=== PATIENT | female | born 1985 | race Caucasian/White ===

== ENCOUNTER 2016-08-31 21:50 | Outpatient (CLI) | payer OTHER ==
[2016-08-31] MEDS ORDERED: NORMAL SALINE 10 ML SYRINGE FLUSH IVP PRN (23:34)
[2016-08-31 23:39] VITALS: RESP 16; TEMP 98.3
--- NOTE | 2016-09-01 14:25 | PDOC(PROG) ---
Intake - - Reason for Visit/Chief Complaint: Decreased Movement Additional Reason(s) for Visit: "second opinion" Admitted From: Home - Estimated Due Date: 09/02/16 Gestational Age in Weeks and Days: 39 Weeks and 6 Days : 4 Para: 2 Term Births: 1 Births: 1 Number of Abortions (Spont./Elective): 1 Living Children: 2 - Labs Blood Type and Rh: O+ Group B Strep: Negative HIV: Negative Maternal - Vital Signs Last Taken Vital Signs: Vital Signs - Last Taken Temperature 98.3 F 08/31/16 22:41 Pulse Rate 108 H 08/31/16 22:41 Respiratory Rate 16 08/31/16 22:41 Blood Pressure 113/68 08/31/16 22:41 Pulse Ox 99 08/31/16 22:41 - Uterine Activity Uterine Contraction Monitor Mode: External Contraction Frequency(minutes): X2 Contraction Duration (seconds): 60-70 Uterine Contraction Pattern: Irregular Uterine Tone Measurement Phase: Resting Uterine Contraction Intensity: Mild - Vaginal Discharge Vaginal Bleeding Amount: None Vaginal Discharge Amount: None Monitoring - Uterine Activity Uterine Contraction Monitor Mode: External Contraction Frequency(minutes): X2 Contraction Duration (seconds): 60-70 Uterine Contraction Pattern: Irregular Uterine Tone Measurement Phase: Resting Uterine Contraction Intensity: Mild Results - Bedside Testing Bedside Urine Ketone: Negative Bedside Urine Leukocytes Esterase: Negative Bedside Urine Nitrite: Negative Bedside Urine Occult Blood: Negative Bedside Urine Protein: Negative Bedside Specific [place]: 1.030 Assessment and Plan - Assessment / Plan Additional Assessment/Plan Details: IUP 39-5/7 weeks when patient presented to labor and delivery last evening. I was told by the nurse that the patient presented because her OB provider in [place], [place] would not strip her membranes. The patient had a reactive nonstress test and I was told that the baby looked great on the monitor. The patient had not had care at [facility] and this visit occurred in the later evening and I got a call at 2230 hrs. The patient was GBS negative per the nurse. Records were requested from [place], [place] The nurse reassured the patient that the baby looked great and that she should follow-up with her provider in [place], [place]. If the patient wanted to follow -up here at [facility], the patient should make an appointment as an outpatient. The patient was given labor precautions and kick count precautions and the patient expressed understanding per the nurse.
== END 2016-08-31 23:15 | disposition home or self-care (01) ==
LOC: OBOP 21:50
PROVIDERS: ATTEND Obstetrics & Gynecology
DX: O36.8130 Decreased fetal movements, third trimester, not applicable or unspecified (principal); Z3A.39 39 weeks gestation of pregnancy
CPT/HCPCS: 59025; 81003; 99211